=== PATIENT | female | born 1940 ===

== ENCOUNTER 2017-12-21 16:11 | Inpatient (IN) | payer OTHER ==
[~2017-12-21] VITALS: Ht 157.5 cm; Wt 78.0 kg
[2017-12-22] MEDS ORDERED: CRESTOR10 MG PO (07:36)
[2017-12-22] MEDS ORDERED: NORVASC5 MG PO (07:36)
[2017-12-22] MEDS ORDERED: ZIAC 5-6.25 MG1 EACH PO (07:37)
[2017-12-22] MEDS ORDERED: CYMBALTA20 MG PO (07:38)
[2017-12-22] MEDS ORDERED: [UNRECOGNIZED DRUG - OTHER] PO (07:38)
[2017-12-28] MEDS ORDERED: COLACE100 MG PO (16:25)
[2017-12-28] MEDS ORDERED: NEURONTIN800 MG PO (16:26)
[2017-12-28] MEDS ORDERED: PERCOCET 5-3251 EACH PO (16:27)
[2017-12-28] MEDS ORDERED: AMOX-CLAV 875-1 EACH PO (16:27)
[2017-12-28] MEDS ORDERED: CLONAZEPAM1 MG PO (16:27)
== END 2017-12-29 12:09 | disposition home or self-care (01) | DRG 460 ==
LOC: O/R 12-28 06:20 → PED 12-28 06:20 → SURH 12-28 13:00 → PED 12-28 17:01 → SURH 02-24 16:08
PROVIDERS: Orthopaedic Surgery Orthopaedic Surgery of the Spine
PROC: 0SP304Z Removal of Internal Fixation Device from Lumbosacral Joint, Open Approach (ICD-10-PCS; 2017-12-28)
PROC: 00NY0ZZ Release Lumbar Spinal Cord, Open Approach (ICD-10-PCS; 2017-12-28)
PROC: 0ST40ZZ Resection of Lumbosacral Disc, Open Approach (ICD-10-PCS; 2017-12-28)
PROC: 0SG10AJ Fusion of 2 or more Lumbar Vertebral Joints with Interbody Fusion Device, Posterior Approach, Anterior Column, Open Approach (ICD-10-PCS; 2017-12-28)
PROC: 07DS3ZZ Extraction of Vertebral Bone Marrow, Percutaneous Approach (ICD-10-PCS; 2017-12-28)
PROC: 0SG30AJ Fusion of Lumbosacral Joint with Interbody Fusion Device, Posterior Approach, Anterior Column, Open Approach (ICD-10-PCS; principal; 2017-12-28 13:00)
DX: M48.07 Spinal stenosis, lumbosacral region (principal); M51.17 Intervertebral disc disorders with radiculopathy, lumbosacral region; M47.27 Other spondylosis with radiculopathy, lumbosacral region; I10 Essential (primary) hypertension; E03.8 Other specified hypothyroidism